=== PATIENT | female | born 1985 | race Caucasian/White ===

== ENCOUNTER → 2020-10-03 10:02 | Outpatient (BNVA) | payer OTHER, SELFPAY | PROVIDERS: PCP Family Medicine; Visit Provider Nurse Practitioner | DX: F41.1 Generalized anxiety disorder (principal); F33.1 Major depressive disorder, recurrent, moderate; Z79.899 Other long term (current) drug therapy; F12.10 Cannabis abuse, uncomplicated | CPT/HCPCS: 80061; 83036 ==

== ENCOUNTER 2021-05-14 08:12 | Emergency (ER) | payer SELFPAY ==
[2021-05-14 08:23] VITALS: BP 120/80; PULSE 92; RESP 16; TEMP 36.8; O2SAT 98; BMI 29.2
[2021-05-14 08:31] VITALS: BP 120/80; PULSE 84; O2SAT 98
--- NOTE | 2021-05-14 08:41 | ED_ITS ---
HPI - Animal Bite General: Chief Complaint: Animal Bite Stated Complaint: Spider Bite on Rgt Hand Time Seen by Provider: 05/14/21 08:18 History of Present Illness: HPI narrative: 36-year-old female who had a insect bite likely from a spider this morning on the dorsum of her right hand. It happened immediately prior to arrival. No drainage no redness no erythema. MD complaint: other (Insect bite) Onset (ago): minute(s) Animal: other (Spider) Mechanism: bite Location - Extremities: Right: hand Associated symptoms: Reports no associated symptoms; Deny chills or fever(s) Review of Systems Const: Denies: fever(s), chills or body aches PFS ED PFSH: Medical History Cannabis abuse, uncomplicated Generalized anxiety disorder Major depressive disorder, recurrent, moderate On high dose antipsychotic drug therapy Other stimulant dependence, in remission Social History Smoking and tobacco status: former smoker Alcohol intake: never Physical Exam Const: COMMON NORMALS: no acute distress GENERAL APPEARANCE: cooperative and comfortable ORIENTATION/CONSCIOUSNESS: Yes awake, Yes oriented to person, Yes oriented to place and Yes oriented to time HENMT: COMMON NORMALS: normocephalic, atraumatic and hearing grossly normal bilaterally HEAD & SCALP: normocephalic and atraumatic Lymph: LYMPHATIC: no lymphadenopathy noted and no lymphedema noted Extremity: COMMON NORMALS: normal to inspection, capillary refill normal, no clubbing, cyanosis or edema, no calf tenderness and no pedal edema Neuro: SENSORIUM/ORIENTATION: Yes oriented to person, Yes oriented to place and Yes oriented to time Skin: COMMON NORMALS: no rashes or lesions noted GENERAL SKIN EXAM: no rashes or lesions noted OTHER: No evidence of erythema no visible bite no swelling at the dorsum of the left hand. No epitrochlear lymphadenopathy. Course Vital Signs: Vital signs: Vital Signs Temperature 98.3 F 05/14/21 08:23 Pulse Rate 84 05/14/21 08:31 Respiratory Rate 16 05/14/21 08:23 Blood Pressure 120/80 05/14/21 08:31 Pulse Oximetry 98 05/14/21 08:31 MDM - Animal Bite MDM Narrative: Medical decision making narrative: Update tetanus follow-up as needed. Given signs and symptoms of cellulitis if she has any though she can either return to the emergency room or follow-up with her PCP. Discharge Plan Discharge Patient Disposition: Home Clinical Impression: Insect bite Condition: Stable Prescriptions: No Action bupropion HCl [Wellbutrin XL] 300 mg tablet extended release 24 hr 300 mg PO QAM Qty: 30 RF: 2 fluoxetine [Prozac] 40 mg capsule 40 mg PO DAILY Qty: 30 RF: 2 quetiapine [Seroquel] 100 mg tablet 100 mg PO .HS Qty: 30 RF: 2 Discharge Orders: Discharge ED (Routine); Ordered 05/14/21 Ordered By: Herrera Fung Patient Instructions: Opioid Safety Coding Level of Care Code ED Biology Laboratory Assistant for Dona Munson
[2021-05-14] MEDS: tetanus-dipt-pertussis 0.5 mL SDV IM (08:44)
[2021-05-14 08:53] VITALS: BP 121/78; PULSE 76; O2SAT 97
== END 2021-05-14 08:54 | disposition home or self-care (01) ==
PROVIDERS: Emergency Provider Family Medicine
DX: S60.561A Insect bite (nonvenomous) of right hand, initial encounter (principal); W57.XXXA Bitten or stung by nonvenomous insect and other nonvenomous arthropods, initial encounter; Z87.891 Personal history of nicotine dependence; Z23 Encounter for immunization
CPT/HCPCS: 90471; 90715; 99282

== ENCOUNTER → 2023-01-18 10:24 | Outpatient (BNVA) | payer OTHER, SELFPAY | PROVIDERS: Visit Provider Nurse Practitioner | DX: F41.1 Generalized anxiety disorder (principal); F12.10 Cannabis abuse, uncomplicated; F15.21 Other stimulant dependence, in remission; F17.200 Nicotine dependence, unspecified, uncomplicated; Z79.899 Other long term (current) drug therapy; F33.1 Major depressive disorder, recurrent, moderate | CPT/HCPCS: 80061; 83036 ==

== ENCOUNTER → 2023-09-07 08:47 | Outpatient (BNVA) | payer OTHER, SELFPAY | PROVIDERS: Referring Provider Advanced Practice Midwife; Visit Provider Obstetrics & Gynecology | DX: Z01.818 Encounter for other preprocedural examination (principal) | CPT/HCPCS: 81025; 88305 ==

== ENCOUNTER → 2024-04-11 14:38 | Outpatient (BNVA) | payer SELFPAY | PROVIDERS: Visit Provider Obstetrics & Gynecology | DX: Z01.419 Encounter for gynecological examination (general) (routine) without abnormal findings (principal) | CPT/HCPCS: 87624 ==

== ENCOUNTER 2025-01-24 15:20 | Outpatient (CLI) | payer OTHER, SELFPAY ==
--- NOTE | 2025-01-24 15:20 | MM_ITS ---
WS: [id number] SCREENING DIGITAL BREAST TOMOSYNTHESIS MAMMOGRAM WITH CAD HISTORY: SCREENING COMPARISON: None available. Bilateral CC and MLO with tomosynthesis and synthetic mammography submitted. Computer aided detection analyzed. Breast composition: The breasts are heterogeneously dense, which may obscure small masses. Asymmetry with partially described margins 12:00 LEFT breast measures 7 x 8 x 6 mm. No suspicious grouping of calcifications or distortion. MM/MM scr BI tomosynthesis [id number] IMPRESSION: BI-RADS: 0 - Incomplete: Need additional imaging evaluation FOLLOW UP: Need Additional Imaging LEFT breast: Spot compression views (CC and MLO). True ML. Ultrasound to follow if abnormality persists.
== END 2025-01-24 15:21 | disposition home or self-care (01) ==
LOC: MOBLMAM 15:29
PROVIDERS: PCP Advanced Practice Midwife; Visit Provider Advanced Practice Midwife
DX: Z12.31 Encounter for screening mammogram for malignant neoplasm of breast (principal); R92.333 Mammographic heterogeneous density, bilateral breasts; N63.25 Unspecified lump in the left breast, overlapping quadrants
CPT/HCPCS: 77063; 77067

== ENCOUNTER 2025-02-05 09:55 | Outpatient (CLI) | payer OTHER, SELFPAY ==
--- NOTE | 2025-02-05 10:01 | MM_ITS ---
WS: [id number] ADDITIONAL VIEWS LEFT MAMMOGRAM WITH DIGITAL BREAST TOMOSYNTHESIS. LEFT breast ultrasound, limited HISTORY: ABNORMAL MAMMO COMPARISON: 01/24/2025 Spot compression views LEFT breast in CC, MLO projections and true ML submitted with digital breast tomosynthesis and . Breast composition: The breasts are heterogeneously dense, which may obscure small masses. Asymmetry noted central to the nipple and above the nipple line on the recent screening mammogram nearly completely resolves. Mild persistent prominent fibroglandular tissue but not masslike. No distortion. No grouping of calcifications. LEFT breast ultrasound, limited. No suspicious mass or shadowing in the LEFT breast towards 12:00 axis. MM/MM diag LT tomosynthesis [id number] IMPRESSION: BI-RADS: 2 - Benign FOLLOW UP: 1 Year Follow-up
== END 2025-02-05 09:56 | disposition home or self-care (01) ==
PROVIDERS: PCP Advanced Practice Midwife; Visit Provider Advanced Practice Midwife
DX: R92.333 Mammographic heterogeneous density, bilateral breasts (principal); R92.8 Other abnormal and inconclusive findings on diagnostic imaging of breast
CPT/HCPCS: 76642; 77061; G0279